=== PATIENT | female | born 1955 ===

== ENCOUNTER 2017-07-13 17:26 | Emergency (ER) | payer OTHER ==
[2017-07-13 17:26] VITALS: BMI 29.0
--- NOTE | 2017-07-13 19:35 | C.PDOC ---
History Of Present Illness 61-year-old female, presents to the emergency department with complaints of left ribs and hand pain, after fall four days ago. Patient comes in because she reports pain is persistent. Denies LOC, dizziness, chest pain, shortness of breath or any other associated symptoms. No other complaints at this time. - HPI Time Seen by Provider: 07/13/17 18:17 Chief Complaint (Nursing): Trauma History Per: Patient History/Exam Limitations: no limitations Past Medical History Reviewed: Historical Data, Nursing Documentation, Vital Signs Vital Signs: Last Vital Signs Temp 98.0 F 07/13/17 19:41 Pulse 82 07/13/17 19:41 Resp 18 07/13/17 19:41 BP 157/82 H 07/13/17 19:41 Pulse Ox 98 07/13/17 21:42 - Medical History PMH: HTN, Hypercholesterolemia Surgical History: Cholecystectomy, Tonsillectomy - [facility] APPLICATION OF SPLINT (05/17/14) REMOVAL SUPERFIC FB EYE (01/24/14) Family History: States: No Known Family Hx - Social History Hx Tobacco Use: No Hx Alcohol Use: No Hx Substance Use: No - Immunization History Hx Tetanus Toxoid Vaccination: No Hx Influenza Vaccination: No Hx Pneumococcal Vaccination: No Review Of Systems Constitutional: Negative for: Fever, Chills Gastrointestinal: Negative for: Vomiting Musculoskeletal: Positive for: Shoulder Pain, Hand Pain Neurological: Negative for: Weakness, Numbness Physical Exam - Physical Exam Appears: Non-toxic, No Acute Distress Skin: Warm, Dry, No Rash Head: Atraumatic, Normacephalic Eye(s): bilateral: Normal Inspection, PERRL, EOMI Nose: Normal Oral Mucosa: Moist Lips: Normal Appearing Throat: No Erythema, No Exudate Neck: Normal ROM, Supple Chest: Symmetrical, No Ecchymosis, No Subcutaneous Emphysema, Other (Left lateral ribs tenderness) Cardiovascular: Rhythm Regular, No Friction Rub, No Murmur Respiratory: Normal Breath Sounds, No Accessory Muscle Use Gastrointestinal/Abdominal: Bowel Sounds (active), Soft, No Tenderness, No Distention, No Guarding, No Rebound Back: Normal Inspection, No CVA Tenderness Extremity: Normal ROM, Capillary Refill (<2 seconds), No Deformity, No Swelling , Other ((+) Mild tenderness Left hand fifth metacarpal area. (-) ecchymosis) Pulses: Left Radial: Normal, Right Radial: Normal, Left Dorsalis Pedis: Normal, Right Dorsalis Pedis: Normal Neurological/Psych: Oriented x3, Normal Speech, Normal Motor Gait: Steady ED Course And Treatment O2 Sat by Pulse Oximetry: 98 (RA) Pulse Ox Interpretation: Normal Medical Decision Making Medical Decision Making: CXR and hand xray are negative. On re-exam, the patient reports improvement of symptoms. Lungs are CTA, heart is RRR. Abdomen is soft, non-tender and is tolerating PO well. Ambulatory in the ED with steady gait. Follow up with the medical doctor/clinic. Return if worsened. Disposition - Disposition Referrals: [facility] [Outside] Disposition: HOME/ ROUTINE Disposition Time: 19:35 Condition: FAIR Additional Instructions: Follow up with the medical doctor within 1-2 days. return if worsened. Prescriptions: Acetaminophen [Tylenol] 325 mg PO Q6 PRN #30 tab PRN Reason: Pain, Mild (1-3) Instructions: Bruised Rib Forms: [facility] (Malagasy) - POA Present On Arrival: None - Clinical Impression Clinical Impression: Rib contusion, Hand contusion - Scribe Statement The provider has reviewed the documentation as recorded by the Scribe (Darron Grier) All medical record entries made by the Scribe were at my direction and personally dictated by me. I have reviewed the chart and agree that the record accurately reflects my personal performance of the history, physical exam, medical decision making, and the department course for this patient. I have also personally directed, reviewed, and agree with the discharge instructions and disposition.
[2017-07-13 19:41] VITALS: BP 157/82; PULSE 82; RESP 18; TEMP 98
[2017-07-13 21:41] VITALS: O2SAT 98
--- NOTE | 2017-07-14 09:17 | RAD ---
HISTORY: fall, chest injury COMPARISON: 01/30/2017 TECHNIQUE: Chest PA and lateral FINDINGS: LUNGS: No active pulmonary disease. Incidental finding(s): Calcified granuloma of 4 mm left upper lobe. PLEURA: No significant pleural effusion identified. No pneumothorax apparent. CARDIOVASCULAR: No radiographic findings to suggest acute or significant cardiovascular disease. OSSEOUS STRUCTURES: No significant abnormalities. VISUALIZED UPPER ABDOMEN: Normal. OTHER FINDINGS: None. IMPRESSION: No active disease. No acute/significant interval changes. Concordant results with the preliminary interpretation rendered by the emergency department physician procedure.
--- NOTE | 2017-07-14 09:23 | RAD ---
PROCEDURE: Left Hand Radiographs. HISTORY: hand injury COMPARISON: None. FINDINGS: BONES: Normal. No fracture. JOINTS: Normal. No osteoarthritic changes. SOFT TISSUES: Normal. OTHER FINDINGS: None. IMPRESSION: Normal left hand radiographs. Concordant results with the preliminary interpretation rendered by the emergency department physician procedure.
== END 2017-07-13 19:41 | disposition home or self-care (01) ==
LOC: C.ER 17:26
DX: S60.222A Contusion of left hand, initial encounter (principal); S20.212A Contusion of left front wall of thorax, initial encounter; W19.XXXA Unspecified fall, initial encounter; I10 Essential (primary) hypertension; E78.00 Pure hypercholesterolemia, unspecified